=== PATIENT | female | born 1970 | race Asian ===

== ENCOUNTER → 2024-03-02 13:40 | Outpatient (REF) | payer OTHER, SELFPAY | LOC: HWWDC 13:40 | PROVIDERS: ATTENDING PHYSICIAN Internal Medicine | DX: Z12.31 Encounter for screening mammogram for malignant neoplasm of breast (principal) | CPT/HCPCS: 77063; 77067 ==

== ENCOUNTER 2024-09-05 06:23 | Day surgery (SDC) | payer OTHER, SELFPAY | END 2024-09-05 09:26 | disposition home or self-care (01) | LOC: GI 06:23 | PROVIDERS: ATTENDING PHYSICIAN Internal Medicine Gastroenterology | DX: Z12.11 Encounter for screening for malignant neoplasm of colon (principal); K64.8 Other hemorrhoids; K63.5 Polyp of colon | CPT/HCPCS: 45380; 88305 ==